=== PATIENT | female | born 1965 | race Caucasian/White ===

== ENCOUNTER → 2024-06-06 | Outpatient (CLI) | payer OTHER ==
[2024-06-06 19:26] LABS: HCT 42.1 % (37.2-46.3); HGB 13.6 g/dL (12.0-15.0); MCH 30.3 pg (27.0-32.0); MCHC 32.3 g/dL (32.0-37.0); MCV 93.8 FL (80.0-97.0); Mean Platelet Volume 9.9 FL (9.5-12.2); NRBC Per 100 WBC 0 X 10*3/uL (0.00-0.01); Platelet Count 283 X 10*3/uL (140-440); RBC 4.49 X 10*6/uL (4.10-5.20); RDW 12.8 % (11.5-14.5); WBC 8.48 X 10*3/uL (4.50-10.00)
[2024-06-06 19:28] LABS: ALT 143 U/L (8-44); AST 38 U/L (13-35); Albumin 4.4 g/dL (3.8-4.9); Albumin/Globulin Ratio 1.69 Ratio (1.60-3.17); Alkaline Phosphatase 140 U/L (41-126); BUN/Creat Ratio 18.88 Ratio (12.00-20.00); Blood Urea Nitrogen 15.1 mg/dL (9.0-27.0); Calcium 10.2 mg/dL (8.7-10.3); Chloride 105 mmol/L (96-109); Globulin 2.6 g/dL (1.6-3.3); Glucose 81 mg/dL (70-110); Potassium 4.1 mmol/L (3.5-5.5); Sodium 141 mmol/L (135-145); Total Bilirubin 0.4 mg/dL (0.3-1.2)
--- NOTE | 2024-06-07 10:40 | P.PN ---
Progress Note - Text Progress Note Date: 06/07/24 10:36 - 10:40: Patient contacted at home regarding results of EKG and labs. Labs demonstrate elevated LFTs consistent with symptomatic gallstones. Close outpatient follow-up described for LFTs.
== END | disposition home or self-care (01) ==
LOC: LABWHC1 15:35
PROVIDERS: ATTEND Surgery Plastic and Reconstructive Surgery
DX: K80.10 Calculus of gallbladder with chronic cholecystitis without obstruction (principal)
CPT/HCPCS: 36415; 80053; 85027

== ENCOUNTER 2024-06-09 10:17 | Day surgery (SDC) | payer OTHER ==
--- NOTE | 2024-06-09 06:40 | P.GSHP ---
History of Present Illness H&P Date: 06/09/24 CHIEF COMPLAINT: Cholecystitis HISTORY OF PRESENT ILLNESS: The patient is a 59-year-old female who presents with history of epigastric including right upper quadrant abdominal pain. She underwent diagnostic studies for her gallbladder. Separately her clinical picture was consistent with cholecystitis. Now she presents for surgical intervention. PAST MEDICAL HISTORY: Please see list PAST SURGICAL HISTORY: Please see list MEDICATIONS: Please see list ALLERGIES: Please see list SOCIAL HISTORY: Please see list FAMILY HISTORY: Please see list REVIEW OF ORGAN SYSTEMS: CONSTITUTIONAL: No reports of fevers or chills. HEENT: Denies any troubles with the vision or hearing. ENDOCRINE: No reports of hypothyroidism. No diabetes. RESPIRATORY: No recent pneumonias. CARDIOVASCULAR: Denies chest pain or palpitations GI: No blood in stools or constipation. MUSCULOSKELETAL: Has occasional joint pain including back pain. NEURO: No seizure disorders or headaches. No recent stroke. PSYCH: No depression or suicidal ideation. GENITOURINARY: No active blood in urine. No urinary hesitancy. HEMATOLOGIC: No personal or family history of DVTs or pulmonary emboli. SKIN: No skin cancer. PHYSICAL EXAM: VITAL SIGNS: Afebrile vital signs stable GENERAL: Well-developed pleasant in no acute distress. HEENT: No scleral icterus. Extraocular movements grossly intact. Moist buccal mucosa. NECK: Supple without lymphadenopathy. CHEST: Unlabored respirations. Equal bilateral excursions. CARDIOVASCULAR: Regular rate regular rhythm rhythm. Distal 2+ pulses. ABDOMEN: Soft, nondistended. Tender along the epigastrium and right upper quadrant. MUSCULOSKELETAL: No clubbing, cyanosis, or edema. NEURO: Cranial nerves II to XII within normal limits. No focal or lateralizing signs. PSYCH: Alert and oriented to person, place and time. SKIN: Well-perfused good skin turgor. ASSESSMENT: 1. Epigastric and right upper quadrant abdominal pain 2. Chronic cholecystitis 3. Symptomatic gallstones. PLAN: 1. Will need a robotic cholecystectomy possible open. Benefits and risks were described. 2. Heparin for DVT prophylaxis 5000 units. 3. Antibiotic prophylaxis. 4. CBC and CMP on day of procedure 5. Non-narcotic pre and post op pain management reviewed. 6. Indocyanine green for biliary imaging. 7. Repeat CMP for elevated liver enzymes Past Medical History Past Medical History: GERD/Reflux, Hyperlipidemia, Osteoarthritis (OA) Additional Past Medical History / Comment(s): abdominal pain- GB, no meds for cholesterol- had been on zepbound. nodule on lung- being watched. History of Any Multi-Drug Resistant Organisms: None Reported Past Surgical History: Hysterectomy Additional Past Surgical History / Comment(s): 2 exploratory procedure for endometriosis, kidney stone removal. left breast lump removed -benign Past Anesthesia/Blood Transfusion Reactions: Postoperative Nausea & Vomiting (PONV) Smoking Status: Former smoker, Heavy tobacco smoker - Past Family History Mother Family Medical History: Deep Vein Thrombosis (DVT) Sister(s) Family Medical History: Deep Vein Thrombosis (DVT), Pulmonary Embolus Additional Family Medical History / Comment(s): , blood clot in brain also. bariatric sleeve Father Family Medical History: Cancer, Myocardial Infarction (RI) Additional Family Medical History / Comment(s): LVAD,. septic with shingles - Brother(s) Family Medical History: Coronary Artery Disease (CAD) Additional Family Medical History / Comment(s): stents Medications and Allergies Home Medications Medication Instructions Recorded Confirmed Type Acetaminophen/Diphenhydramine 2 tab PO HS 06/07/24 06/07/24 History [Tylenol PM 500-25mg] Healthy Living Probiotic 1 tab PO DAILY 06/07/24 06/07/24 History Ketorolac [Toradol] 10 mg PO DIRECTED PRN 06/07/24 06/07/24 History Omeprazole [PriLOSEC] 40 mg PO DAILY 06/07/24 06/07/24 History Ondansetron [Zofran] 4 mg PO DIRECTED PRN 06/07/24 06/07/24 History Super B Supplement 1 tab PO DAILY 06/07/24 06/07/24 History Allergies Allergy/AdvReac Type Severity Reaction Status Date / Time No Known Allergies Allergy Verified 06/07/24 09:57
[~2024-06-09 10:17] MED LIST: INDOCYANINE GREEN 25 MG VIAL IV STA; MIDAZOLAM 2 MG/2 ML VIAL IV PRN
[2024-06-09] MEDS: IV FLUID CONTINUATION 1,000 ML IV ONE ×3 (11:00→13:23)
[2024-06-09] MEDS: LACTATED RINGERS 1,000 ML IV SCH (11:11)
[2024-06-09] MEDS: HEPARIN SODIUM,PORCINE 5,000 UNIT/ML 1 ML VIAL SQ PRN (11:12)
[2024-06-09] MEDS: ACETAMINOPHEN TAB 500 MG TAB PO PRN (11:12)
[2024-06-09] MEDS: ONDANSETRON 4 MG/2 ML VIAL IVP PRN (11:13)
[2024-06-09] MEDS: DEXAMETHASONE SOD PHOSPHATE 4 MG/ML 1 ML VIAL IVP ONE (11:15)
[2024-06-09] MEDS ORDERED: PROPOFOL 10 MG/ML 20 ML VIAL IV ONE (11:23)
[2024-06-09] MEDS ORDERED: SUGAMMADEX SODIUM 100 MG/ML SYR IV ONE (11:23)
[2024-06-09] MEDS ORDERED: ROCURONIUM 10 MG/ML (5 ML VIAL) IV ONE (11:23)
[2024-06-09] MEDS ORDERED: SUCCINYLCHOLINE CHLORIDE 200 MG/10 ML VIAL IV ONE (11:23)
[2024-06-09] MEDS ORDERED: MIDAZOLAM 2 MG/2 ML VIAL ONE (11:23)
[2024-06-09] MEDS ORDERED: fentaNYL (PF) 50 MCG/ML 2 ML AMP ONE (11:23)
[2024-06-09] MEDS ORDERED: GLYCOPYRROLATE 0.2 MG/ML 2 ML VIAL ONE (11:23)
[2024-06-09] MEDS ORDERED: NEOSTIGMINE 1 MG/ML 10 ML VIAL ONE (11:23)
[2024-06-09] MEDS ORDERED: LIDOCAINE 1% INJ 10MG/ML (20 ML MDV) ONE (11:23)
[2024-06-09] MEDS: LIDOCAINE 1%-EPI 1:100,000 20 ML VIAL SQ ONE ×2 (11:29→11:50)
[2024-06-09 11:38] LABS: ALT 77 U/L (4-34); AST 30 U/L (14-36); African American GFR (CKD) >90 (>60 ml/min/1.73 sqM); Albumin 4.3 g/dL (3.5-5.0); Alkaline Phosphatase 100 U/L (38-126); Anion Gap 8 mmol/L; Blood Urea Nitrogen 18 mg/dL (7-17); Calcium 10.2 mg/dL (8.4-10.2); Carbon Dioxide 28 mmol/L (22-30); Chloride 107 mmol/L (98-107); Glucose 88 mg/dL (74-99); Non-African American GFR(CKD) 89 (>60 ml/min/1.73 sqM); Potassium 4.6 mmol/L (3.5-5.1); Sodium 143 mmol/L (137-145); Total Bilirubin 0.4 mg/dL (0.2-1.3); Total Protein 7.2 g/dL (6.3-8.2)
[2024-06-09 12:38] VITALS: RESP 16; TEMP 98
[2024-06-09] MEDS: HYDROmorphone 0.5 MG/0.5 ML SYRINGE IVP PRN (12:46)
[2024-06-09] MEDS: KETOROLAC 15 MG/ML 1 ML VIAL IVP STA (12:46)
[2024-06-09 13:52] VITALS: BP 123/76; PULSE 58
--- NOTE | 2024-06-09 17:39 | P.OP ---
Date of Procedure: 06/09/24 Description of Procedure: SURGEON: MARILU RENAE MD PREOPERATIVE DIAGNOSES: 1. Acute cholecystitis due to gallstones 2. Gastroesophageal reflux disease 3. Obesity to excess calories, BMI 30.7 4. Family history of gallbladder disorder 5. Hyperlipidemia 6. Postop nausea and vomiting 7. History of elevated liver enzymes POSTOPERATIVE DIAGNOSES: 1. Acute cholecystitis 2. Gastroesophageal reflux disease 3. Obesity to excess calories, BMI 30.7 4. Family history of gallbladder disorder 5. Hyperlipidemia 6. Postop nausea and vomiting 7. Fatty liver disease with hepatomegaly OPERATION: Robotic-assisted da Papito Xi laparoscopic cholecystectomy, multiport with FIREFLY ESTIMATED BLOOD LOSS: 5 mL. SPECIMENS REMOVED: Gallbladder. COMPLICATIONS: None. OPERATIVE FINDINGS: 1. Acute cholecystitis due to nonvisualization of the gallbladder with indocyanine green 2. Moderately retracted gallbladder 3. Severe fatty liver disease with hepatomegaly INDICATIONS: The patient is a 59-year-old female who reports worsening epigastric right upper quadrant abdominal pain rating to the upper back. Patient went to her local hospital and was diagnosed with multiple gallstones. She does report strong family history of gallbladder disease. Additionally patient had intentional weight loss with weight loss medications. Robotic assisted laparoscopic approach was described. Benefits and risks of the procedure including but not limited to bleeding, infection, injury to the biliary tree was described. Informed consent was obtained. DESCRIPTION OF PROCEDURE: Patient was brought to the operating room, placed in supine position. After general induction, the abdomen had been prepped and draped in standard sterile fashion. The robotic da Papito XI system was primed. After a timeout protocol was performed, the patient had been prepped and draped in standard sterile fashion. The patient was injected with indocyanine green. A 5 mm 0 degrees laparoscopic trocar entry was performed along the left upper quadrant. The abdomen insufflated to 15 mmHg pressure which was tolerated well. Diagnostic laparoscopy demonstrated no injury to bowel viscera or mesentery. The liver surface was remarkable for hepatomegaly moderate to severe with fatty liver disease involving the left lobe of the liver. Next, two 8 mm robotic ports were placed along the right upper abdomen. The camera 8-mm port was maintained along the epigastrium. Another 8 mm port was placed along the left upper abdominal wall after exchanging the 5 mm port. Please note that the ports were placed at least 10 to 15 cm away from the target anatomy of the gallbladder. The robot was docked along the left lateral abdomen. The patient was repositioned in reverse Trendelenburg position. Using a grasper for arm 3, a grasper for arm 4, including hook cautery for arm 1, the robotic system was docked and primed as described. Instruments were interchanged by the magistrate assistant including hook cautery, Bovie cautery and clip appliers. I had sat at the console. The gallbladder was moderately contracted however with indocyanine green, lack of visualization confirmed acute cholecystitis. Common bile duct was within the normal limits. Next attention was brought to the infundibulum and cystic s tructures. The infundibulum and cystic duct were dissected free from surrounding tissues. The cystic duct was isolated. FIREFLY was used to identify the cystic artery and cystic structures. A critical view of safety was obtained. Large PLASTIC clips were used throughout the entire case. Using a clip coach builder, 3 clips were placed at the junction of the infundibulum and cystic duct. The cystic duct was divided between clips. Next, the cystic artery similarly clipped once and cauterized. Total of 3 clips were left along the hepatic bed. Electro-Bovie cautery was used to remove the gallbladder from the hepatic fossa. Hemostasis was checked and found to be adequate. The robot was undocked. I re-scrubbed into the case. Using a 10 mm Endo Catch bag via the left upper quadrant incision, the specimen was removed from the abdominal cavity. All pneumoperitoneum instruments were evacuated from the abdominal cavity. The incisions were reapproximated using 4-0 Monocryl in an interrupted subcuticular fashion. Fascial defects were less than 8 mm in size. Please note along the trocar sites, local anesthetic was placed as a field block prior to insertion of all instruments. Liquid glue was applied to the skin. At the end of the procedure needle, sponge, and instrument count had been verified correct by the surgical scheduler. The patient was transferred to postanesthesia care unit in stable condition. Intraoperative films were shared with the patient's family. Plan - Discharge Summary Discharge Rx Participant: No New Discharge Prescriptions: New Simethicone [Gas-X] 125 mg PO AC-TID PRN #20 capsule PRN Reason: Pain Ibuprofen [Motrin] 600 mg PO Q8HR PRN #30 tab PRN Reason: Pain Acetaminophen Tab [Tylenol Tab] 1,000 mg PO Q6HR PRN #30 tablet PRN Reason: Pain Continue Ondansetron [Zofran] 4 mg PO DIRECTED PRN PRN Reason: Nausea Omeprazole [PriLOSEC] 40 mg PO DAILY Super B Supplement 1 tab PO DAILY Healthy Living Probiotic 1 tab PO DAILY Discontinued Ketorolac [Toradol] 10 mg PO DIRECTED PRN PRN Reason: Pain Acetaminophen/Diphenhydramine [Tylenol PM 500-25mg] 2 tab PO HS Discharge Medication List Healthy Living Probiotic 1 tab PO DAILY 06/07/24 [History] Omeprazole [PriLOSEC] 40 mg PO DAILY 06/07/24 [History] Ondansetron [Zofran] 4 mg PO DIRECTED PRN 06/07/24 [History] Super B Supplement 1 tab PO DAILY 06/07/24 [History] Acetaminophen Tab [Tylenol Tab] 1,000 mg PO Q6HR PRN #30 tablet 06/09/24 [Rx] Ibuprofen [Motrin] 600 mg PO Q8HR PRN #30 tab 06/09/24 [Rx] Simethicone [Gas-X] 125 mg PO AC-TID PRN #20 capsule 06/09/24 [Rx] Follow up Appointment(s)/Referral(s): Marilu Renae MD [STAFF PHYSICIAN] - 06/13/24 7:00 pm Patient Instructions/Handouts: *[facility] - Laparoscopic Cholecystectomy Discharge Instructions, *[facility] - (Anesthesia) Discharge Instructions Outpatient Surgery, Low Fat Diet (DC) Activity/Diet/Wound Care/Special Instructions: No heavy lifting, bending, or straining. Discharge Disposition: HOME SELF-CARE
== END 2024-06-09 14:50 | disposition home or self-care (01) ==
LOC: OR 10:17
PROVIDERS: ATTEND Surgery Plastic and Reconstructive Surgery
DX: K80.12 Calculus of gallbladder with acute and chronic cholecystitis without obstruction (principal); K76.0 Fatty (change of) liver, not elsewhere classified; K21.9 Gastro-esophageal reflux disease without esophagitis; E78.5 Hyperlipidemia, unspecified; E66.9 Obesity, unspecified; M19.90 Unspecified osteoarthritis, unspecified site; Z68.30 Body mass index [BMI] 30.0-30.9, adult; Z83.79 Family history of other diseases of the digestive system; Z90.710 Acquired absence of both cervix and uterus; Z87.891 Personal history of nicotine dependence; Z82.49 Family history of ischemic heart disease and other diseases of the circulatory system; Z79.899 Other long term (current) drug therapy
CPT/HCPCS: 47562; 88304; 80053; J2250; J0330; J1644; J1100; J2710; J0690; J2405; J2003; J3010; J1885; J2704; J1171; J1596